=== PATIENT | female | born 1955 | race Caucasian/White ===

== ENCOUNTER → 2016-08-26 | Outpatient (CLI) | payer MEDICAID ==
--- NOTE | 2016-08-26 16:43 | MA ---
Bilateral Digital Screening Mammography Clinical History: 61-year-old female with no family history of breast cancer, who presents for routin e annual mammographic screening. Technique: Digital CC and MLO views of each breast were compared with previous studies dated December 27, December 24, 2010, November 21, 2009. Cutaneous markers have been placed over moles on the skin surface of the left breast. Additionally, this examination was processed by the [facility] computer-aided detection s [employer]. Breast Density: Type B. CAD Evaluation: Reviewed. Findings: There is a mild residual fibroglandular pattern, which is stable from previous studies. The re is no focal neodensity or interim architectural change. There are no suspicious clustered microcal cifications. Faint vascular calcifications are noted bilaterally. Impression: Negative mammography. BI-RADS category 1. Recommendation: Routine annual mammographic screening. [facility] will send a result letter to the patient. Negative mammography should not preclude additional workup of a clinically suspicious finding. The patients information is entered into a reminder system with a target due date for her next mammog rg.
== END ==
LOC: BRMIMAGING 14:07
PROVIDERS: ATTEND Physician Assistant
DX: Z12.31 Encounter for screening mammogram for malignant neoplasm of breast (principal)
CPT/HCPCS: G0202

== ENCOUNTER → 2018-05-19 | Outpatient (CLI) | payer MEDICAID | LOC: BRMIMAGING 08:19 | PROVIDERS: ATTEND Physician Assistant | DX: Z12.31 Encounter for screening mammogram for malignant neoplasm of breast (principal) ==